=== PATIENT | female | born 1965 | race Two or more races ===

== ENCOUNTER → 2024-12-13 | Outpatient (CLI) | payer BC, SELFPAY ==
--- NOTE | 2024-12-13 15:15 | XR_ITS ---
Examination: Screening digital mammography, bilateral Computer aided detection 3-D breast Tomosynthesis, bilateral Date and time of exam: December 13, 2024 1515 hours Compared to mammograms dating to September 03, 2015 Indication: Screening Technique: Nonmagnified MLO, CC views of the breasts to been obtained, reconstructed from 3-D Tomosynthesis images. R2 computer aided detection program utilized for evaluation of suspicious masses and/or abnormal calcifications. 3-D Tomosynthesis images obtained. Findings: Scattered areas of fibroglandular density. Benign calcifications. No interval suspicious masses Impression: BI-RADS category II: Benign Findings. Recommend 1 year follow-up mammogram.
== END | disposition home or self-care (01) ==
PROVIDERS: PCP Nurse Practitioner Family; Referring Provider Nurse Practitioner Family; Visit Provider Nurse Practitioner Family
DX: Z12.31 Encounter for screening mammogram for malignant neoplasm of breast (principal); R92.323 Mammographic fibroglandular density, bilateral breasts; R92.1 Mammographic calcification found on diagnostic imaging of breast
CPT/HCPCS: 77063; 77067

== ENCOUNTER 2025-03-02 10:28 | Emergency (ER) | payer BC, SELFPAY ==
[2025-03-02 10:29] VITALS: BMI 23.6
[2025-03-02 10:34] VITALS: BP 246/110; BP 247/100; PULSE 67; RESP 18; TEMP 36.6; O2SAT 99; BMI 24.7
--- NOTE | 2025-03-02 10:53 | EDNOTE_ITS ---
<Statement entered by Nava Monzon MD - 03/08/25 05:25> As co-signing physician, I was present and available for consult prn. I concur with the plan and care as documented by the midlevel provider. ED Dental RME/HPI General Chief complaint: Dental/Oral/Throat Stated complaint: FISH BONE STUCK IN THROAT Time Seen by Provider: 03/02/25 10:33 Arrival date/time: 03/02/25 10:28 This is a 59-year-old female that comes into the emergency room with complaints of a fishbone stuck in the back of her throat. Patient was seen at the clinic this morning and per patient was given a steroid shot to help with throat swelling. Patient arrives with high blood pressure but reports he she has no history of high blood pressure. Patient states she was just really feeling anxious. Related Data Home Medications ?Medication ?Instructions ?Recorded ?Confirmed multivitamin 1 tab PO QDAY 07/18/1807/18 Allergies Allergy/AdvReac Type Severity Reaction Status Date / Time NKA* Allergy Uncoded 03/02/25 10:31 Review of Systems Review of Systems Systems Reviewed: All systems reviewed, normal except as documented Past Medical History Past Medical History Comments PMH COMMENT: hx of htn ED Exam General General appearance: Present alert and in no apparent distress Head Head exam: Present atraumatic Eye Eye exam: Present normal appearance, PERRL and EOMI ENT ENT exam: Present mucous membranes moist and other (fishbone approximately 2 cm in length rempved from the back of the throat) Neck Neck exam: Present normal inspection, full ROM and trachea midline Chest Chest inspection: Present normal inspection and symmetric chest wall rise Respiratory Respiratory exam: Present normal lung sounds bilaterally Cardiovascular Cardiovascular exam: Present regular rate and normal rhythm Abdominal Exam Abdominal exam: Present soft Extremities Exam Extremities exam: Present normal inspection and full ROM Back Exam Back exam: Present normal inspection and full ROM Neurological Exam Neurological exam: Present alert, oriented X3 and CN II-XII intact Psychiatric Psychiatric exam: Present normal affect and normal mood Skin Skin exam: Present warm, dry, intact and normal color Course Quality Measures none Orders Category Date Time Status Acetaminophen Tab [Tylenol ES Tab] Med 03/02/25 10:48 Discontinued 1,000 mg PO X1 ONE Ibuprofen Tab [Motrin Tab] Med 03/02/25 10:48 Discontinued 800 mg PO X1 ONE cefTRIAXone [Rocephin] 1,000 mg Med 03/02/25 10:44 Discontinued Lidocaine 1% 20 ml [Xylocaine 1% 20 ML] 2.1 ml IM X1 cloNIDine HCL [Catapres] Med 03/02/25 12:20 Discontinued 0.1 mg PO X1 ONE Vital Signs Vital signs: Vital Signs Temperature 97.8 F 03/02/25 10:34 Pulse Rate 67 03/02/25 10:34 Respiratory Rate 18 03/02/25 10:34 Blood Pressure 247/100 H 03/02/25 10:34 Pulse Oximetry (%) 99 03/02/25 10:34 Oxygen Delivery Method Room Air 03/02/25 10:34 Dental / Oral MDM Narrative MDM Narrative:: I used the alligator forceps and removed a fishbone approximately 2 cm in length from the back of the throat. Patient tolerated procedure well. I we will treat empirically because patient was trying to remove the fishbone several different ways. Patient's posterior pharynx is erythemic. Patient told to follow-up with her primary provider in 1 to 2 days. Come back to the emergency room if symptoms change or worsen. Patient data External records reviewed:: [facility] previous records Clinical information provided by:: patient Social determinants that could affect healthcare access:: none Patient has the following chronic illnesses:: htn How is presenting disease/condition affected by chronic disease/condition?: uneffected by Evaluation data The following diagnostics were reviewed and interpreted by me:: other (specify) (none ) Lab and/or radiology exams considered but not ordered:: none Interpretation Summary: n/a Medications / Prescriptions Medications or Prescriptions considered but not ordered:: none Medication administrations:: Medication Administration History Discontinued Medications Acetaminophen (Acetaminophen 500 Mg Tablet) 1,000 mg PO X1 ONE Stop: 03/02/25 10:49 Last Admin: 03/02/25 11:21 Dose: 1,000 mg Documented By: DO Clonidine (Clonidine Hcl 0.1 Mg Tablet) 0.1 mg PO X1 ONE Stop: 03/02/25 12:21 Last Admin: 03/02/25 12:27 Dose: 0.1 mg Documented By: DO Ceftriaxone Sodium 1,000 mg/ (Lidocaine HCl 2.1 ml) 0 mg IM X1 ONE Stop: 03/02/25 10:45 Last Admin: 03/02/25 11:21 Dose: 1,000 mg Documented By: DO Ibuprofen (Ibuprofen Tab 400 Mg Tablet) 800 mg PO X1 ONE Stop: 03/02/25 10:49 Last Admin: 03/02/25 11:21 Dose: 800 mg Documented By: DO see mar Consultations Consultation(s) initiated? (list below): No Diagnosis Most likely diagnosis given after review of the tests above:: htn, foreighn body back of throat Admission Indicated Admission indicated?: not indicated Admission Request Was there a request for admission?: No Disposition Plan Disposition Plan: Discharge Discharge Attestation Discharge Attestation: The patient and all family members were given an opportunity to ask questions and understood the discharge instructions. Discharge instructions specifically effects, indications for sooner follow up or return to the emergency department, and the expected course of current diagnosis. Patient condition: Stable Discharge Plan Plan Patient Disposition: HOME (Self Care) Patient condition on transfer: Stable Prescriptions/Referrals Prescriptions/Med Rec: No Action multivitamin Tablet 1 tab PO QDAY Referrals: Donald Cobb([facility] [place] [facility])MD [Primary Care Provider] - In 1 week Problem List Clinical Impression: Feeling of foreign body in throat, Hypertension Patient/Caregiver Discharge Instructions Discharge Activity: activity as tolerated Education Materials: Hypertension Dc, ED Foreign Body Soft Tissue Additional Instructions: Foreign body removed. Follow up with primary provider in 1-2 days. Come back to ED if symptoms change or worsen please make sure you follow-up about your blood pressure with primary provider. Print Language: Bulgarian Stand Alone Forms: Edyta Award Info., Patient Portal Info Letter PA/ANDREI Supervising Physician PA/ANDREI Supervising Physician: tanner
[2025-03-02] MEDS: cefTRIAXone 1,000 MG, LIDOCAINE 1% 20 ML 2.1 ML IM (11:21)
[2025-03-02] MEDS: IBUPROFEN TAB 400 MG TABLET 800 MG PO (11:21)
[2025-03-02] MEDS: ACETAMINOPHEN 500 MG TABLET 1000 MG PO (11:21)
[2025-03-02 12:21] VITALS: BP 211/80; PULSE 66; RESP 18; TEMP 36.8; O2SAT 96
[2025-03-02 12:27] VITALS: BP 211/80; PULSE 66
[2025-03-02] MEDS: cloNIDine HCL 0.1 MG TABLET PO (12:27)
[2025-03-02 12:33] VITALS: BP 209/118
[2025-03-02 13:33] VITALS: BP 165/92; PULSE 61; RESP 18; O2SAT 97
== END 2025-03-02 13:37 | disposition home or self-care (01) ==
PROVIDERS: Emergency Provider Emergency Medicine; PCP Family Medicine
DX: T17.228A Food in pharynx causing other injury, initial encounter (principal); I10 Essential (primary) hypertension; W44.F3XA Food entering into or through a natural orifice, initial encounter
CPT/HCPCS: 96372; 99283; J0696; J3490; A9270